=== PATIENT | female | born 1950 | race Caucasian/White ===

== ENCOUNTER 2017-02-07 08:00 | Outpatient (CLI) | payer MEDICARE, BC | END 2017-02-07 08:01 | disposition home or self-care (01) | LOC: BICMAMMO 08:00 | PROVIDERS: ATTEND Obstetrics & Gynecology | DX: Z12.31 Encounter for screening mammogram for malignant neoplasm of breast (principal); Z80.3 Family history of malignant neoplasm of breast | CPT/HCPCS: 77063; 77067; G0202 ==

== ENCOUNTER 2018-06-01 16:20 | Inpatient (IN) | payer MEDICARE, BC ==
[~2018-06-01 16:20] MED LIST: ISOVUE-370 76%-LOCM 1 ML ONE; Iopamidol 370 76% 50 ML VIAL FS ONE
[2018-06-01 17:36] LABS: #Eosinphils 0.1 thou/uL (0.0-0.7); #Lymphocytes 1.1 thou/uL (1.20-3.40); #Monocytes 0.6 thou/uL (0.11-0.59); #Neutrophils 8.6 thou/uL (1.40-6.50); %Basophils 0.4 % (0.0-1.0); %Eosinophils 0.5 % (0.0-10.0); %Lymphocytes 10.4 % (21.0-51.0); %Monocytes 6.1 % (0.0-10.0); %Neutrophils 82.6 % (42.0-75.0); Hemoglobin 11.9 g/dL (12.0-16.0); Mean Corpuscular HGB CONC 32.3 g/dL (32.0-36.0); Mean Corpuscular Hemoglobin 29.5 pg (27.0-31.0); Mean Corpuscular Volume 91.1 fL (78.0-98.0); Mean Platelet Volume 7.1 fL (7.4-10.4); Platelet Count 508 thou/uL (130-400); RBC Distribution Width 11.8 % (11.5-14.5); Red Blood Cell (RBC) Count 4.03 mill/uL (4.20-5.40); White Blood Cell (WBC) Count 10.4 thou/uL (4.8-10.8)
[2018-06-01 17:53] LABS: ALT (SGPT) 19 U/L (8-55); AST (SGOT) 14 U/L (5-34); Albumin 3.9 g/dL (3.4-4.8); Alkaline Phosphatase 90 U/L (40-150); Anion Gap 12 mmol/L (10-20); BUN (Urea Nitrogen) 7 mg/dL (9.8-20.1); Bilirubin, Total 0.4 mg/dL (0.2-1.2); Calc. Creatinine Clearance 0 mL/min (70-130); Calcium 9.5 mg/dL (7.8-10.44); Carbon Dioxide 26 mmol/L (23-31); Chloride 94 mmol/L (98-107); Estimated GFR-MDRD 80; Globulin 3.6 g/dL (2.4-3.5); Glucose 144 mg/dL (80-115); Lipase 8 U/L (8-78); Magnesium 2.3 mg/dL (1.6-2.6); Potassium 4.1 mmol/L (3.5-5.1); Protein, Total 7.5 g/dL (6.0-8.3); Sodium 128 mmol/L (136-145)
[2018-06-01 18:39] LABS: Free T4 (Free Thyroxine) 1.37 ng/dL (0.70-1.48)
--- NOTE | 2018-06-01 19:08 | CT ---
FCT abdomen and pelvis with IV contrast. Oral contrast was administered. INDICATIONS: Abdominal pain COMPARISON: None FINDINGS: Lung bases are clear. There is a moderately large fixed diaphragmatic hernia with a large portion of stomach above the diaphragm. Liver, spleen, and pancreas appear unremarkable. Adrenal glands appear normal. Kidneys appear unremarkable. Collecting structures and urinary bladder appear unremarkable. Small bowel loops are normal caliber and exhibit normal fold pattern. Appendix is identified and appears unremarkable. The: Is distended throughout to the level of the sigmoid where there is luminal narrowing and inflamm atory change. There is an abrupt changing caliber in the left lower quadrant at the junction of the d escending colon and sigmoid colon. Surrounding inflammation. No abscess or fluid collection. No extra luminal gas. Occasional diverticula. Aorta is normal caliber. No evidence of retroperitoneal or mesenteric adenopathy. The uterus unremarkable. The left adnexa is prominent but appears to be involved with the inflammator y process which appears to originate from the colon as noted above. Subcutaneous tissues, abdominal wall, and muscular structures appear unremarkable. Osseous structures appear unremarkable. IMPRESSION: 1. Distention of the colon to the level of the upper sigmoid and left lower quadrant. There is abrupt change in caliber and there is inflammatory change involving the sigmoid colon with luminal narrowin g and mural thickening. Surrounding inflammation. Considerations include diverticulitis, colitis, and neoplasm. Consider endoscopy.
[2018-06-01] MEDS ORDERED: Ondansetron PF 4 MG/2 ML Vial IVP PRN (21:03)
[2018-06-01] MEDS ORDERED: Acetaminophen 325 MG TAB PO PRN (21:03)
[2018-06-01] MEDS ORDERED: Ondansetron ODT 4 MG TAB PO PRN (21:03)
[2018-06-01 21:59] VITALS: BMI 33.4
[2018-06-01] MEDS: Sodium Chloride 0.9% 1,000 ML IV SCH (22:16)
--- NOTE | 2018-06-01 23:01 | HP ---
PRIMARY CARE PHYSICIAN: [facility]. CODE STATUS: Full code. TIME OF EVALUATION: 8:25 p.m. CHIEF COMPLAINT: Constipation. HISTORY OF PRESENT ILLNESS: A 68-year-old female patient with past medical history of hypothyroidism and hypertension, came to the hospital after having constipation for the past 3 days. She has been unable to pass any stool. The patient had some nausea and vomiting yesterday. The patient has tried multiple stool softeners with no results. She also had some abdominal cramps, no clear triggers, no alleviating factors. The abdominal pain was 2/10. Symptom has been rather worsening. REVIEW OF SYSTEMS: CONSTITUTIONAL: No fever, chills, or generalized weakness. RESPIRATORY: No cough, sputum production, or shortness of breath. CARDIOVASCULAR: No chest pain or palpitation. GASTROINTESTINAL: The patient had nausea, vomiting, and abdominal cramps, mostly on the left side of the abdomen. [employer]: No dizziness, headache, or feeling lightheaded. GENITOURINARY: No burning on urination. EXTREMITIES: No leg swelling. All other systems were reviewed and negative except for the findings mentioned above. PAST MEDICAL HISTORY: As mentioned in the HPI. PAST SURGICAL HISTORY: No surgical history. PSYCHIATRIC HISTORY: No psych history. SOCIAL HISTORY: No alcohol. No drugs. No smoking history. FAMILY HISTORY: Reviewed and noncontributory for current presentation. KNOWN ALLERGIES: No known drug allergies. REPORTED MEDICATIONS: Levothyroxine. PHYSICAL EXAMINATION: VITAL SIGNS: On presentation; blood pressure 174/98 with heart rate 89, respiratory rate was 16, temperature 97.9, and oxygen saturation 98% on room air. GENERAL APPEARANCE: The patient is alert, oriented, not in acute distress. HEENT: Eyes, normal conjunctivae. Moist oral mucosa. Anicteric. No JVD. RESPIRATORY: Bilateral air entry. No rales. No wheezes. Symmetric expansion. CARDIOVASCULAR: Normal rate. Regular rhythm. No murmurs. No gallop. No edema. ABDOMEN: Soft. Mild tenderness. MUSCULOSKELETAL: Baseline range of motion and strength. No tenderness. SKIN: Warm, intact. No pallor. No rash. No redness. Peripheral pulses are present. Capillary refill seems to be intact. NEURO: No evidence of any new focal weakness. Baseline speech. Cranial nerves seem to be intact. PSYCH: The patient is in good mood. No anxiety. Optimal judgment. DIAGNOSTIC DATA: Abdomen and pelvis CT was done. The patient has distention of the colon at the level of the upper sigmoid on left upper quadrant. There is an abrupt change in caliber and there is inflammatory change involving the sigmoid colon, luminal narrowing, more of thickening surrounding inflammation. Considerations include diverticulitis, colitis, neoplasm. Consider endoscopy. LABORATORY DATA: Labs were reviewed. The patient has white count 10.4, hemoglobin 11.9, MCV 91, and platelet count 508. Chemistry; sodium 128, potassium 4.1, chloride 94, carbon dioxide 26, anion gap 12, BUN 7, creatinine 0.73, GFR 80, and glucose 144. Serum osmolality 272, calcium 9.5, magnesium 2.3, total bilirubin 0.4, AST 14, ALT 19, and alkaline phosphatase 90. Serum total protein 7.5, albumin 3.9, globulin 3.6, albumin-globulin ratio is 1.1, lipase 8, free T4 of 1.37, and TSH 1.0. ASSESSMENT AND PLAN: The patient will be placed in the hospital with following medical problems; 1. Colonic mass, seen on the CAT scan. We will consult GI, the patient has been constipated, is unable to pass any stool with abdominal cramps and bowel distention on the CAT scan. We will follow GI recommendations. 2. Hyponatremia, sodium 128. The patient will receive some hydration. This might be secondary to poor oral intake due to nausea and vomiting. 3. Hyperglycemia with glucose 144, this is likely due to acute physical distress or possible undiagnosed glucose tolerance, we will monitor. No need for any acute intervention at this point. We will treat accordingly. 4. Hypoosmolality, is likely secondary to dehydration and poor oral intake. The patient is receiving fluids. We will treat underlying condition. 5. Deep venous thrombosis prophylaxis. Job ID: [id number]
[2018-06-02 05:36] LABS: #Eosinphils 0.1 thou/uL (0.0-0.7); #Lymphocytes 1.4 thou/uL (1.20-3.40); #Monocytes 0.9 thou/uL (0.11-0.59); #Neutrophils 8.4 thou/uL (1.40-6.50); %Basophils 0.4 % (0.0-1.0); %Eosinophils 0.6 % (0.0-10.0); %Lymphocytes 12.7 % (21.0-51.0); %Monocytes 8.6 % (0.0-10.0); %Neutrophils 77.8 % (42.0-75.0); Hemoglobin 11.2 g/dL (12.0-16.0); Mean Corpuscular HGB CONC 33.5 g/dL (32.0-36.0); Mean Corpuscular Hemoglobin 30.3 pg (27.0-31.0); Mean Corpuscular Volume 90.5 fL (78.0-98.0); Mean Platelet Volume 7.2 fL (7.4-10.4); Platelet Count 471 thou/uL (130-400); RBC Distribution Width 11.6 % (11.5-14.5); White Blood Cell (WBC) Count 10.8 thou/uL (4.8-10.8)
[2018-06-02 06:02] LABS: Anion Gap 12 mmol/L (10-20); BUN (Urea Nitrogen) 7 mg/dL (9.8-20.1); Calc. Creatinine Clearance 114 mL/min (70-130); Carbon Dioxide 25 mmol/L (23-31); Chloride 96 mmol/L (98-107); Estimated GFR-MDRD 88; Glucose 121 mg/dL (80-115); Potassium 4.1 mmol/L (3.5-5.1); Sodium 129 mmol/L (136-145)
--- NOTE | 2018-06-02 11:45 | PRG ---
DATE OF SERVICE: 06/02/2018 SUBJECTIVE: The patient feels fine, occasionally having some mild cramping pain. She denies any recent changes in her weight. Denies any change in the caliber of her stool. Denies any fevers or chills. She does report that she has had some narrowing of the stool only in the last few days when the other symptoms have developed as well. OBJECTIVE: VITAL SIGNS: Temperature 98.6, pulse 85, respirations 18, O2 saturation 95% on room air, and blood pressure 147/70. GENERAL APPEARANCE: Slightly obese, age-appropriate female, in no distress. She is awake, alert, oriented, pleasant, and cooperative. HEART: Regular rate and rhythm without murmurs. LUNGS: Clear to auscultation bilaterally with good chest wall expansion and air exchange. ABDOMEN: Soft, nontender, and nondistended. Positive bowel sounds. No masses. No organomegaly. Bowel sounds are of normal character. EXTREMITIES: No edema. LABORATORY DATA: White count 10.8, hemoglobin 11.2, and platelets 471. Sodium 129, potassium 4.1, chloride 96, BUN 7, creatinine 0.67, and glucose 121. IMPRESSION AND PLAN: 1. Colonic mass seen on CT scan with obstructive symptoms and signs on CT could be potentially neoplastic versus inflammatory. GI has been consulted. May need a flexible sigmoidoscopy or other endoscopy in order to assess the lesion concerning that she does not have an elevated white count or fever or significant tenderness raising the concern for possible neoplasm. The patient has never had a screening colonoscopy in the past. She has no family history of colorectal cancer. 2. Hyponatremia, stable, asymptomatic. 3. Hypoglycemia, improved. 4. Hypertension. Continue with her usual home medications. 5. Hypothyroidism. Continue with her usual home medications. Job ID: [id number]
[2018-06-02] MEDS ORDERED: Levothyroxine Sodium 112 MCG TAB PO SCH (12:15)
[2018-06-02] MEDS ORDERED: Bisoprolol Fumarate/HCTZ 10 mg/6.25 mg Tablet PO SCH (12:45)
[2018-06-02] MEDS: Sodium Chloride 0.9% 1,000 ML IV SCH (13:56)
[2018-06-02] MEDS ORDERED: metroNIDAZOLE 500 MG in Premix Bag 1 BAG IVPB SCH (22:00)
--- NOTE | 2018-06-02 23:59 | CON ---
DATE OF CONSULTATION: 06/02/2018 CONSULTING PHYSICIAN: Lauro Villalobos MD REASON FOR CONSULTATION: Constipation and colonic mass versus diverticulitis seen on CT. HISTORY OF PRESENT ILLNESS: The patient is a 68-year-old female with past medical history of hypothyroidism and hypertension, presenting with complaints of constipation. She states that she was in her usual state of health until approximately 1 week ago when she had a sudden onset of increased constipation, which was a significant change in her bowel habits. This constipation was characterized as having approximately 1 bowel movement per day, but with smaller volume and semi-solid consistency (normally having 1 larger volume solid bowel movement per day). This constipation worsened over the course of the last week to the point where 2 to 3 days prior to admission she was unable to pass any stool, which then prompted her to seek healthcare assistance at [facility]. Along with the constipation, she endorse intermittent cramping abdominal pain that was located in the suprapubic region, would last approximately seconds in duration with intermittent occurrence and would reach a severity of approximately 6/10. Prior to admission, this was occurring every 10 to 20 minutes for the 24 hours prior to, but now while in the hospital and having bowel movements is now resolving. Today, for instance, she had approximately 3 to 4 semi-solid liquid bowel movements and has been having a decrease in this abdominal cramping since then. Currently, she denies any nausea, vomiting, fevers, chills, GI bleeding, dysphagia, odynophagia, or weight loss. REVIEW OF SYSTEMS: A 10-category review of systems was obtained with all responses negative except for the pertinent positives as listed in HPI. PAST MEDICAL HISTORY: As per HPI. PAST SURGICAL HISTORY: None. FAMILY HISTORY: Denies any GI malignancies. SOCIAL HISTORY: Denies any tobacco, alcohol, or illicit drug use. OUTPATIENT MEDICATIONS: Reviewed. ALLERGIES: NO KNOWN DRUG ALLERGIES. PHYSICAL EXAMINATION: VITAL SIGNS: Temperature 99, pulse 77, blood pressure 120/63, respiratory rate 16, saturating 95% on room air. GENERAL: The patient is lying in bed, in no acute distress. Alert and oriented x4. HEENT: Normocephalic, atraumatic with no scleral icterus or JVD noted. CARDIOVASCULAR: Regular rate and rhythm with no discernible murmurs, gallops, or rubs. RESPIRATORY: Clear to auscultation bilaterally with no discernible wheezes or rales. ABDOMEN: Normoactive bowel sounds. Soft and nondistended. Tenderness to palpation in the left lower quadrant and suprapubic regions. EXTREMITIES: No cyanosis, clubbing, or edema. LABORATORY DATA: CBC with white blood cell count of 10.8, hemoglobin 11.2, hematocrit 33.5, platelets 471. Chemistry with sodium of 129, potassium 4.1, chloride 96, CO2 of 25, BUN 7, creatinine 0.67, glucose 121, AST 14, ALT 19, alkaline phosphatase 90, total bilirubin 0.4. IMAGING DATA: CT of the abdomen and pelvis was obtained on June 01, 2018, which showed moderately large fixed diaphragmatic hernia with a large portion of the stomach above the diaphragm. It also showed increased colonic distention of the proximal colon with luminal narrowing of the sigmoid colon with surrounding information and associated diverticula in this region. The differential based on these imaging findings per the radiologist include diverticulitis, colitis, and possible neoplasm. ASSESSMENT AND PLAN: The patient is a 68-year-old female with past medical history of hypothyroidism and hypertension, presenting with abnormal gastrointestinal imaging. Abnormal gastrointestinal imaging/left lower quadrant abdominal pain. The patient is presenting with acute onset of change in her bowel habits characterized as increased constipation over the last week with smaller volume stools and ultimately resulted in inability to have a bowel movement for the 2 to 3 days prior to admission. This was associated with increased left lower quadrant abdominal pain, which was characterized as a cramping type sensation, would occur seconds in duration and resolve on its own. However, upon seeking healthcare assistance at the [facility], she had a CT scan which showed luminal narrowing of the sigmoid colon that was associated with increased inflammation/inflammatory fat stranding as well as occasional diverticula with the differential including diverticulitis and possible neoplasm. At this time, it is difficult to discern whether or not this is diverticulitis and the swelling associated with this particular condition or if this is a colonic malignancy contributing to her change in bowel habits. Given the increased risk of perforation with endoscopic intervention in diverticulitis, giving her a trial of IV antibiotics in an attempt to decrease the inflammation and/or pain may be prudent prior to proceeding with endoscopic management. RECOMMENDATIONS: 1. Would place the patient on broad-spectrum antibiotics including ciprofloxacin and metronidazole for possible diverticulitis. 2. Would place the patient on a full liquid diet in an attempt to facilitate having a bowel movement and minimize possible obstruction. 3. Would continue to monitor the patient clinically for response to IV antibiotic administration. If the patient is not responding to antibiotics after 24 to 48 hours, would then consider endoscopic evaluation of the colon for possible GI malignancy. We will continue to follow, please call with any questions. Job ID: [id number]
[2018-06-03] MEDS: Levothyroxine Sodium 112 MCG TAB PO SCH (05:50)
[2018-06-03] MEDS: Sodium Chloride 0.9% 1,000 ML IV SCH ×3 (05:50→23:18)
[2018-06-03] MEDS: metroNIDAZOLE 500 MG in Premix Bag 1 BAG IVPB SCH ×3 (08:10→23:21)
[2018-06-03] MEDS: Bisoprolol Fumarate/HCTZ 10 mg/6.25 mg Tablet PO SCH (08:11)
--- NOTE | 2018-06-03 12:01 | PRG ---
DATE OF SERVICE: 06/03/2018 SUBJECTIVE: The patient says she is feeling much better. She is not having any significant abdominal pain. She has had bowel movements and tolerating p.o.'s. OBJECTIVE: VITAL SIGNS: Temperature 98.3, pulse 82, BP 142/68, respirations 16, O2 sat 95% on room air, and blood pressure 135/62. GENERAL APPEARANCE: Age-appropriate female, in no distress. Awake, alert, oriented, pleasant, cooperative. HEART: Regular rate and rhythm without murmurs, gallops, or rubs. LUNGS: Clear to auscultation bilaterally with good chest wall expansion and air exchange. ABDOMEN: Soft, nontender, and nondistended. Positive bowel sounds. No masses. No organomegaly. EXTREMITIES: Warm and dry with no edema. IMPRESSION AND PLAN: 1. Colonic mass, which was evaluated by GI, felt it was appropriate to try to treat this is more of an inflammatory issue initially. She is on Cipro and Flagyl. She appears to be significantly improved. At this point, we will anticipate continuing the antibiotics today. If she continues to do well in the morning, I then anticipate discharge on p.o. antibiotics and follow up with GI as an outpatient. I encouraged her to ambulate today. 2. , stable. We will recheck in the morning. 3. , stable. Continue home medications. 4. Hypothyroidism. Continue home medications. Job ID: [id number]
--- NOTE | 2018-06-03 14:06 | PRG ---
DATE OF SERVICE: 06/03/2018 REASON FOR CONSULTATION: Diverticulitis versus colonic mass. SUBJECTIVE: The patient did well overnight with no acute events or problems. She states that her abdominal pain has almost completely resolved with no further twinges of this pain. She is also passing liquid bowel movements and flatus at this time with no pain associated with either. Currently, denies any nausea, vomiting, fevers, chills, or GI bleeding. OBJECTIVE: VITAL SIGNS: Temperature 97.7, pulse 76, blood pressure 118/76, respiratory rate 20, and saturating 94% on room air. GENERAL: The patient is lying in bed, in no acute distress. Alert and oriented x4. CARDIOVASCULAR: Regular rate and rhythm. RESPIRATORY: Clear to auscultation bilaterally. ABDOMEN: Normoactive bowel sounds. Soft, nondistended. Mild tenderness to palpation in the left lower quadrant and suprapubic regions. EXTREMITIES: No cyanosis, clubbing, or edema. LABORATORY DATA: No current GI studies are available for review. IMAGING DATA: No current GI studies are available for review. ASSESSMENT AND PLAN: The patient is a 68-year-old female with past medical history of hypothyroidism and hypertension, presenting with abnormal gastrointestinal imaging consistent with diverticulitis. The patient initially presented with acute onset of increased left lower quadrant abdominal pain that was associated with a change in her bowel habits over the last week prior to admission. On evaluation in the ED, she was noted to have imaging findings consistent with inflammation within the sigmoid colon consistent with diverticulitis, but with concern for possible neoplasm in the region. She was ultimately placed on IV antibiotics and pain control per primary team and while on this regimen, has had a significant improvement in her symptoms. At this time, it seems to be that her symptoms are more related to diverticulitis, which may be exhibiting either swelling or mass effect, creating the appearance of a mass on CT and she would benefit from continued IV antibiotics. However, given this bout of diverticulitis, the possibility of malignancy still exists, so even if we do not end up doing the colonoscopy now, we probably would highly recommend performing it in 4 to 6 weeks from now after resolution of her diverticulitis. RECOMMENDATIONS: 1. Would continue the patient on broad-spectrum antibiotics for probable diverticulitis. 2. Continue the patient on full liquid diet. 3. We would continue to monitor the patient clinically for response to the IV antibiotic administration. Given her significant improvement, she could be considered for oral antibiotics on discharge and follow up in the GI Clinic for an outpatient colonoscopy at that time. 4. Would continue to monitor the patient overnight here in-house and if doing well in the morning, could consider discharge. We will continue to follow. Please call with any questions. Job ID: [id number]
[2018-06-04] MEDS: Sodium Chloride 0.9% 1,000 ML IV SCH ×2 (05:35→16:21)
[2018-06-04] MEDS: Levothyroxine Sodium 112 MCG TAB PO SCH (06:07)
[2018-06-04] MEDS: metroNIDAZOLE 500 MG in Premix Bag 1 BAG IVPB SCH ×2 (07:58→16:22)
[2018-06-04] MEDS: Bisoprolol Fumarate/HCTZ 10 mg/6.25 mg Tablet PO SCH (09:19)
[2018-06-04] MEDS ORDERED: Saccharomyces boulardii 250 MG CAP PO SCH (09:30)
[2018-06-04 10:01] LABS: #Eosinphils 0.2 thou/uL (0.0-0.7); #Lymphocytes 1.4 thou/uL (1.20-3.40); #Monocytes 0.9 thou/uL (0.11-0.59); #Neutrophils 5.5 thou/uL (1.40-6.50); %Basophils 0.5 % (0.0-1.0); %Eosinophils 2.2 % (0.0-10.0); %Lymphocytes 17.3 % (21.0-51.0); Hemoglobin 10.9 g/dL (12.0-16.0); Mean Corpuscular HGB CONC 32.8 g/dL (32.0-36.0); Mean Corpuscular Volume 91.4 fL (78.0-98.0); Platelet Count 451 thou/uL (130-400); Red Blood Cell (RBC) Count 3.65 mill/uL (4.20-5.40); White Blood Cell (WBC) Count 7.9 thou/uL (4.8-10.8)
[2018-06-04 10:24] LABS: ALT (SGPT) 15 U/L (8-55); AST (SGOT) 16 U/L (5-34); Albumin 3.5 g/dL (3.4-4.8); Alkaline Phosphatase 69 U/L (40-150); Anion Gap 12 mmol/L (10-20); BUN (Urea Nitrogen) 5 mg/dL (9.8-20.1); Bilirubin, Total 0.4 mg/dL (0.2-1.2); Calc. Creatinine Clearance 114 mL/min (70-130); Carbon Dioxide 25 mmol/L (23-31); Chloride 104 mmol/L (98-107); Estimated GFR-MDRD 88; Globulin 2.9 g/dL (2.4-3.5); Glucose 115 mg/dL (80-115); Potassium 3.7 mmol/L (3.5-5.1); Protein, Total 6.4 g/dL (6.0-8.3); Sodium 137 mmol/L (136-145)
--- NOTE | 2018-06-04 18:31 | PRG ---
DATE OF SERVICE: 06/04/2018 REASON FOR CONSULTATION: Diverticulitis versus colonic mass. SUBJECTIVE: The patient did well overnight with no acute events or problems. Today, she states that her abdominal pain has completely resolved and she has had approximately 1 to 2 semi-solid bowel movements per day that are returning to "normal." Currently, she denies any nausea, vomiting, fevers, chills, or GI bleeding. OBJECTIVE: VITAL SIGNS: Temperature 98.3, pulse 82, blood pressure 119/71, respiratory rate 20, saturating 97% on room air. GENERAL: The patient is lying in bed, in no acute distress. Alert and oriented x4. CARDIOVASCULAR: Regular rate and rhythm. RESPIRATORY: Clear to auscultation bilaterally. ABDOMEN: Normoactive bowel sounds. Soft, nontender, nondistended. EXTREMITIES: No cyanosis, clubbing, or edema. LABORATORY DATA: CBC with a white blood cell count of 7.9, hemoglobin 11.9, hematocrit 33.4, and platelets 451. Chemistry with a sodium of 137, potassium 3.7, chloride 104, CO2 25, BUN 5, creatinine 0.67, glucose 115. IMAGING DATA: No current GI imaging is available for review. ASSESSMENT AND PLAN: The patient is a 68-year-old female with past medical history of hypothyroidism and hypertension, presenting with abnormal GI imaging consistent with diverticulitis. The patient initially presented with acute onset of increased left lower quadrant abdominal pain that was associated with a change in her bowel habits 4 weeks prior to admission. On admission, she was noted to have imaging findings consistent with inflammation within the sigmoid colon consistent with diverticulitis, but with concern for possible neoplasm in the region. She was ultimately placed on IV antibiotics and while on this regimen, has been doing well with complete resolution of her abdominal pain and resumption of more normal bowel habits. At this time, it appears to be a case of acute uncomplicated diverticulitis, but there still does remain some question of possible malignancy in the region. Given her improved clinical status with the current antibiotic regimen, she could be potentially considered for discharge on followup in the GI clinic with an outpatient colonoscopy at later date. RECOMMENDATIONS: 1. Would continue the patient on broad-spectrum antibiotics for probable diverticulitis. If discharged to home, would continue an approximate 10-day course of ciprofloxacin and metronidazole. 2. Would advance the patient's diet as tolerated. 3. The patient is able to tolerate a more solid diet and doing well here as an inpatient, could consider discharge as early as tonight with followup in the GI clinic in 3 to 4 weeks. We will sign off at this time. Please call with any questions. Job ID: [id number]
--- NOTE | 2018-06-04 22:53 | PDOC.PN ---
- Subjective Encounter Start Date: 06/04/18 Encounter Start Time: 11:15 Patient seen and examined for Abd pain/Diverticulitis. Diarrhea improving. No N/ V. Tolerating Full liqd diet. No new complaints. No overnight events - Objective Resuscitation Status - Order Detail: 06/01/18 21:03 Resuscitation Status Routine Resuscitation Status: FULL: Full Resuscitation MAR Reviewed: Yes Vital Signs & Weight: Vital Signs (12 hours) Temp Pulse Resp BP BP Pulse Ox 06/04/18 19:40 98.1 F 93 20 116/61 96 06/04/18 16:00 98.3 F 82 20 119/71 97 06/04/18 12:00 98.3 F 73 20 111/64 97 Weight Weight 194 lb 12.8 oz I&O: 06/03/18 06/04/18 06/05/18 06:59 06:59 06:59 Intake Total 2550 3048 2024 Output Total 450 Balance 2100 3048 2024 Result Diagrams: 06/04/18 09:41 06/04/18 09:41 Phys Exam - Physical Examination Constitutional: NAD Respiratory: no wheezing, no rhonchi Cardiovascular: RRR, no rub Gastrointestinal: soft, non-tender, positive bowel sounds Musculoskeletal: no edema Neurological: moves all 4 limbs Dx/Plan - Plan DVT proph w/SCDs 1. Acute Diverticulitis 2. Hypothyrodism 3. Hyponatremia 4. HTN 5. Chronic Anemia/Obesity BMI 33.4 PLAN: Cont current Atbx DC IVF later today if tolerating PO well Cont Bisoprolol/HCTZ Ambulate Advance diet later today if ok with GI Review of Systems - Review of Systems Respiratory: negative: Cough, Dry, Shortness of Breath, Hemoptysis, SOB with Excertion, Pleuritic Pain, Sputum, Wheezing Cardiovascular: negative: chest pain, palpitations, orthopnea, paroxysmal nocturnal dyspnea, edema, light headedness, other - Medications/Allergies Allergies/Adverse Reactions: Allergies Allergy/AdvReac Type Severity Reaction Status Date / Time No Known Drug Allergies Allergy Verified 06/01/18 22:59 Medications: Current Medications Acetaminophen (Tylenol) 650 mg PO Q4H PRN PRN Reason: Headache/Fever/Mild Pain (1-3) Bisoprolol Fumarate/HCTZ (Ziac 10-6.25) 1 tab PO DAILY EFRAÍN Last Admin: 06/04/18 09:19 Dose: 1 tab Sodium Chloride (Normal Saline 0.9%) 1,000 mls @ 75 mls/hr IV .[id number] [facility] Stop: 06/04/18 23:59 Last Admin: 06/04/18 16:21 Dose: 1,000 mls Metronidazole 500 mg/ Device 100 mls @ 100 mls/hr IVPB 0800,1600,2359 [facility] Last Admin: 06/04/18 16:22 Dose: 100 mls Ciprofloxacin/Dextrose 400 mg/ (Device) 200 mls @ 200 mls/hr IVPB 1100,2300 [facility] Last Admin: 06/04/18 22:03 Dose: 200 mls Levothyroxine Sodium (Synthroid) 112 mcg PO 0600 [facility] Last Admin: 06/04/18 06:07 Dose: 112 mcg Ondansetron HCl (Zofran Odt) 4 mg PO Q6H PRN PRN Reason: Nausea/Vomiting Ondansetron HCl (Zofran) 4 mg IVP Q6H PRN PRN Reason: Nausea/Vomiting Last Admin: 06/01/18 22:16 Dose: 4 mg Saccharomyces Boulardii (Florastor) 250 mg PO DAILY [facility] Sodium Chloride (Flush - Normal Saline) 10 ml IVF Q12HR [facility] Sodium Chloride (Flush - Normal Saline) 10 ml IVF PRN PRN PRN Reason: Saline Flush
[2018-06-05] MEDS: metroNIDAZOLE 500 MG in Premix Bag 1 BAG IVPB SCH ×2 (00:02→08:04)
[2018-06-05] MEDS: Levothyroxine Sodium 112 MCG TAB PO SCH (05:15)
[2018-06-05] MEDS: Bisoprolol Fumarate/HCTZ 10 mg/6.25 mg Tablet PO SCH (08:12)
[2018-06-05] MEDS ORDERED: Saccharomyces boulardii 250 MG CAP PO SCH (09:00)
[2018-06-05 11:54] VITALS: BP 110/74; TEMP 98
--- NOTE | 2018-06-05 22:20 | DIS ---
DATE OF ADMISSION: 06/03/2018 DATE OF DISCHARGE: 06/05/2018 DISCHARGE DISPOSITION: Home. FOLLOWUP: 1. Follow up with primary care physician, Dr. Ronel Mcnamara in 1 week. 2. Follow up with Gastroenterology, Dr. Xiong in 3 to 4 weeks. ALLERGIES: NO KNOWN DRUG ALLERGIES. DISCHARGE MEDICATIONS: 1. Ciprofloxacin 500 mg twice a day for next 4 days. 2. Flagyl 500 mg every 8 hourly for next 4 days. 3. Florastor 250 mg daily. 4. Levothyroxine 112 mcg daily. 5. Bisoprolol and hydrochlorothiazide 10/6.25 mg daily. The patient was seen on the day of discharge. Denies any new complaints. No chest pain, shortness of breath, or palpitations. SIGNIFICANT LABS: Sodium 128 on admission and 137 at discharge. Hemoglobin 10.9. CT scan of the abdomen in the emergency room showed findings consistent with acute diverticulitis versus colitis. BRIEF HOSPITAL COURSE: The patient is a 68-year-old female with hypertension and hypothyroidism, presented to the hospital with nausea, vomiting along with abdominal discomfort. Please refer to the history and physical for further details. The patient was admitted to the hospital with a diagnosis of acute diverticulitis with dehydration. She showed good improvement with IV fluids and antibiotics. She was evaluated by Gastroenterology, Dr. Xiong. She will complete 7 days of ciprofloxacin and Flagyl. She will follow up with Dr. Xiong as outpatient for colonoscopy. Sodium improved with IV hydration. FINAL DIAGNOSES: 1. Acute diverticulitis. 2. Hypotonic hyponatremia. 3. Hypothyroidism. 4. Hypertension. 5. Chronic anemia. 6. Obesity with a body mass index of 33.4. Job ID: [id number]
== END 2018-06-05 14:05 | disposition home or self-care (01) | DRG 392 ==
LOC: ERS 16:20 → 2SW 19:46 → OBSVTOIN 06-03 08:26 → T4-B 06-03 10:51
PROVIDERS: ADMIT Internal Medicine; ATTEND Internal Medicine
DX: K57.32 Diverticulitis of large intestine without perforation or abscess without bleeding (principal); E87.1 Hypo-osmolality and hyponatremia; I10 Essential (primary) hypertension; E03.9 Hypothyroidism, unspecified; K59.00 Constipation, unspecified; R73.9 Hyperglycemia, unspecified; E86.0 Dehydration; D64.9 Anemia, unspecified; E66.9 Obesity, unspecified; Z79.899 Other long term (current) drug therapy; Z68.33 Body mass index [BMI] 33.0-33.9, adult
CPT/HCPCS: 36415; 74177; 80048; 80053; 83690; 83735; 83930; 84100; 84439; 84443; 85025; J0744; J2405; Q9966; Q9967

== ENCOUNTER 2019-10-29 10:22 | Outpatient (CLI) | payer MEDICARE, BC ==
--- NOTE | 2019-10-29 11:37 | MMO ---
Bilateral MAMMO Bilat Screen [facility]. CLINICAL HISTORY: Patient is 69 years old and is seen for screening. The patient has the following family history of breast cancer: mother, at age 66. The patient has no personal history of cancer. VIEWS: The views performed were: bilateral craniocaudal with tomosynthesis and bilateral mediolateral oblique with tomosynthesis. FILMS COMPARED: The present examination has been compared to prior imaging studies performed at [facility] on 10/15/2012, 12/23/2013, 03/29/2015 and 02/07/2017. This study has been interpreted with the assistance of computer-aided detection. MAMMOGRAM FINDINGS: There are scattered fibroglandular densities. Finding 1: There are stable benign appearing calcifications seen in both breasts. Finding 2: There are several stable masses with circumscribed margins seen in both breasts. Finding 3: There is a mass measuring 7 millimeters with circumscribed margins seen in the upper-outer region of the right breast. IMPRESSION: FINDING 1: STABLE CALCIFICATIONS IN BOTH BREASTS ARE BENIGN. FINDING 2: STABLE MASSES IN BOTH BREASTS ARE BENIGN. FINDING 3: MASS IN THE RIGHT BREAST REQUIRES ADDITIONAL EVALUATION. ADDITIONAL PROJECTIONS (RIGHT CRANIOCAUDAL SPOT COMPRESSION; RIGHT MEDIOLATERAL OBLIQUE SPOT COMPRESSION; RIGHT MEDIOLATERAL; AND RIGHT MEDIOLATERAL SPOT COMPRESSION) ARE RECOMMENDED. AN ULTRASOUND EXAM IS RECOMMENDED IF NEEDED. ADDITIONAL IMAGING. THE RESULTS OF THIS EXAM WERE SENT TO THE PATIENT. ACR BI-RADS Category 0 - Incomplete: Need additional imaging evaluation. [facility] will notify the patient of the need for additional imaging services. MAMMOGRAPHY NOTE: 1. A negative mammogram report should not delay a biopsy if a dominant of clinically suspicious mass is present. 2. Approximately 10% to 15% of breast cancers are not detected by mammography. 3. Adenosis and dense breasts may obscure an underlying neoplasm. Reported by: ANUJ ZAVALA MD Electonically Signed: [id number]
--- NOTE | 2019-10-29 11:59 | BD ---
DEXA bone density scan: 10/29/2019 COMPARISON: None HISTORY: Postmenopausal female undergoing screening for osteoporosis FINDINGS: Bone mineral density (grams per centimeter squared) is as follows: L1 1.083 L2 1.113 L3 1.168 L4 1.240 Total lumbar spine 1.160 Femoral neck 0.933 Total proximal femur 1.145 T-scores are as follows: L1 0.8 L2 0.8 L3 0.8 L4 1.6 Total lumbar spine 1.0 Femoral neck 0.8 Total proximal femur 1.7 The FRAX-WHO fracture risk assessment tool is not reported as all T-scores are at or above -1.0 IMPRESSION: Normal bone mineral density examination.
== END 2019-10-29 10:23 | disposition home or self-care (01) ==
LOC: BICMAMMO 10:22
PROVIDERS: ATTEND Registered Nurse
DX: Z12.31 Encounter for screening mammogram for malignant neoplasm of breast (principal); Z13.820 Encounter for screening for osteoporosis; R92.1 Mammographic calcification found on diagnostic imaging of breast; N63.11 Unspecified lump in the right breast, upper outer quadrant; Z78.0 Asymptomatic menopausal state; Z80.3 Family history of malignant neoplasm of breast
CPT/HCPCS: 77063; 77067; 77080

== ENCOUNTER 2021-03-25 13:38 | Outpatient (CLI) | payer MEDICARE, BC | END 2021-03-25 13:39 | disposition home or self-care (01) | LOC: BICMAMMO 13:38 | PROVIDERS: ATTEND Registered Nurse | DX: Z12.31 Encounter for screening mammogram for malignant neoplasm of breast (principal); Z80.3 Family history of malignant neoplasm of breast | CPT/HCPCS: 77063; 77067 ==

== ENCOUNTER 2022-06-06 13:20 | Outpatient (CLI) | payer MEDICARE, BC | END 2022-06-06 13:21 | disposition home or self-care (01) | LOC: BICMAMMO 13:20 | PROVIDERS: ATTEND Registered Nurse | DX: Z12.31 Encounter for screening mammogram for malignant neoplasm of breast (principal); Z78.0 Asymptomatic menopausal state | CPT/HCPCS: 77063; 77067; 77080 ==